=== PATIENT | female | born 1980 | race Caucasian/White ===

== ENCOUNTER 2024-01-05 14:53 | Inpatient (IN) | payer BC ==
[2024-01-05 15:33] VITALS: BMI 17.9
[2024-01-05] MEDS ORDERED: BENZOCAINE/MENTHOL (CHLORASEPTIC ) LOZENGE MM PRN (18:00)
[2024-01-05] MEDS ORDERED: hydrOXYzine PAMOATE 25 MG CAPSULE (FP) PO PRN (18:00)
[2024-01-05] MEDS ORDERED: LOPERAMIDE HCL 2 MG CAPSULE PO PRN (18:00)
[2024-01-05] MEDS ORDERED: IBUPROFEN 600 MG TABLET (FP) PO PRN (18:00)
[2024-01-05] MEDS ORDERED: ACETAMINOPHEN 325 MG TABLET (FP) PO PRN (18:00)
[2024-01-05] MEDS ORDERED: ONDANSETRON *ODT* 4 MG TABLET SL PRN (18:00)
[2024-01-05] MEDS ORDERED: IBUPROFEN 400 MG TABLET (FP) PO PRN (18:00)
[2024-01-05] MEDS ORDERED: guaiFENesin 600 MG TABLET.ER (FP) PO PRN (18:00)
[2024-01-05] MEDS ORDERED: P-EPHED 60MG/TRIPROLIDI 2.5MG TABLET PO PRN (18:00)
[2024-01-05] MEDS ORDERED: POLYETHYLENE GLYCOL (HEALTHYLAX) 3350 17 GM PACKET PO PRN (18:00)
[2024-01-05] MEDS ORDERED: MAG HYDROX/AL HYDROX/SIMETH 30 ML UNIT-DOSE CUP PO PRN (18:00)
[2024-01-05] MEDS ORDERED: BENZONATATE 200 MG CAPSULE PO PRN (18:00)
[2024-01-05] MEDS ORDERED: MAGNESIUM HYDROX 2400MG/30ML ORAL SUSPENSION 30 ML CUP PO PRN (18:00)
[2024-01-05] MEDS ORDERED: ALBUTEROL SO4 HFA INHALER IH PRN (18:03)
[2024-01-05] MEDS: chlordiazePOXIDE HCL 25 MG CAPSULE PO PRN (19:40)
[2024-01-05] MEDS: MELATONIN 5 MG TABLETS PO SCH (22:41)
[2024-01-05] MEDS: THIAMINE HCL 100 MG TABLET (FP) PO SCH (22:41)
[2024-01-05] MEDS: chlordiazePOXIDE HCL 25 MG CAPSULE PO SCH (22:43)
[2024-01-05] MEDS: DICYCLOMINE HCL 10 MG CAPSULE PO PRN (22:43)
[2024-01-06] MEDS: METHOCARBAMOL 500 MG TABLET PO PRN (05:48)
[2024-01-06] MEDS: PRENATAL VITAMINS W/ FOLIC ACID TABLET (FP) PO SCH (10:34)
[2024-01-06 12:12] LABS: HEMATOCRIT 32.8 % (32.4-45.2); HEMOGLOBIN 10.3 GM/dL (10.7-15.3); MCH 26.9 pg (25.7-33.7); MCHC 31.5 g/dl (32.0-36.0); MEAN CELL VOLUME 85.3 fl (80-96); PLATELET COUNT 49 10^3/uL (134-434); RBC 3.84 M/mm3 (3.60-5.2); RDW 21.9 % (11.6-15.6); WHITE BLOOD COUNT 5.1 K/mm3 (4.0-10.0)
[2024-01-06 13:48] LABS: POTASSIUM 3.3 mmol/L (3.5-5.1)
[2024-01-06 13:53] LABS: BLOOD UREA NITROGEN 11.1 mg/dL (7-18)
[2024-01-06 13:54] LABS: CALCIUM 9.1 mg/dL (8.5-10.1); CREATININE 0.7 mg/dL (0.55-1.3)
[2024-01-06 13:55] LABS: TOT PROT 7.6 g/dl (6.4-8.2)
[2024-01-06 13:56] LABS: BILIRUBIN,TOTAL 3.3 mg/dL (0.2-1)
[2024-01-06] MEDS: LIDOCAINE 4% PATCH TP SCH (17:03)
[2024-01-06] MEDS: POTASSIUM CHLORIDE ORAL LIQUID 20 MEQ/15 ML PO ONE (17:03)
[2024-01-06] MEDS: PRAZOSIN HCL 1 MG CAPSULE PO SCH (22:20)
[2024-01-06] MEDS: traZODone HCL 50 MG TABLET (FP) PO SCH (22:20)
[2024-01-06] MEDS: LIDOCAINE PATCH REMOVAL MC SCH (22:39)
[2024-01-07] MEDS ORDERED: chlordiazePOXIDE HCL 25 MG CAPSULE PO SCH (05:00)
[2024-01-07] MEDS: chlordiazePOXIDE HCL 10 MG CAPSULE PO SCH (05:18)
[2024-01-07 10:58] LABS: POTASSIUM 3.7 mmol/L (3.5-5.1)
[2024-01-07 11:01] LABS: CALCIUM 9.3 mg/dL (8.5-10.1)
[2024-01-07 11:06] LABS: CREATININE 0.6 mg/dL (0.55-1.3)
[2024-01-08] MEDS ORDERED: chlordiazePOXIDE HCL 10 MG CAPSULE PO PRN
[2024-01-08] MEDS: chlordiazePOXIDE HCL 10 MG CAPSULE PO SCH (05:31)
[2024-01-08 21:06] VITALS: TEMP 98.4
[2024-01-08] MEDS: BISMUTH SUBSALICYLATE 524 MG/30 ML PO PRN (22:13)
[2024-01-09] MEDS: chlordiazePOXIDE HCL 10 MG CAPSULE PO ONE (05:56)
[2024-01-09 06:59] VITALS: BP 96/61; PULSE 89; RESP 16
== END 2024-01-09 08:41 | disposition home or self-care (01) | DRG 775 ==
LOC: YASAS 14:53 → Y3N 17:31
PROVIDERS: ADMIT Allergy & Immunology; ATTEND Surgery
PROC: HZ2ZZZZ Detoxification Services for Substance Abuse Treatment (ICD-10-PCS; principal; 2024-01-05)
DX: F10.230 Alcohol dependence with withdrawal, uncomplicated (principal); E87.6 Hypokalemia; I10 Essential (primary) hypertension; Z86.59 Personal history of other mental and behavioral disorders; Z62.810 Personal history of physical and sexual abuse in childhood; Z91.410 Personal history of adult physical and sexual abuse; Z63.0 Problems in relationship with spouse or partner; Z63.8 Other specified problems related to primary support group; Z87.19 Personal history of other diseases of the digestive system; Z87.09 Personal history of other diseases of the respiratory system
CPT/HCPCS: 36415; 71046-TC-FY; 80048; 80053; 81025; 85027; 86780; 87635; 93005; 93010